=== PATIENT | male | born 1955 | race Caucasian/White ===

== ENCOUNTER → 2017-03-05 | Day surgery (SDC) | payer OTHER ==
[2017-03-03 10:20] LABS: HCT 42.4 % (42.0-52.0); HGB 14.8 g/dl (13.2-18.0); MCH 29.7 pg (25.0-31.0); MCHC 34.9 g/dL (32.0-36.0); MCV 85.1 fL (78.0-100.0); MPV 10.3 fL (6.0-9.5); RBC 4.98 M/uL (4.70-6.00); RDW 12.4 % (11.5-14.0); WBC 4.9 K/uL (4.0-10.5)
[2017-03-03 10:28] LABS: ALBUMIN 4.3 g/dL (3.4-4.8); BILIRUBIN - TOTAL 0.4 mg/dL (0.1-1.0); CREATININE 0.8 mg/dL (0.7-1.2); GLOBULIN (CALCULATION) 2.5 g/dL (2.2-4.2); POTASSIUM 4.6 mmol/L (3.5-5.1); TOTAL PROTEIN 6.8 g/dL (6.4-8.3)
== END | disposition home or self-care (01) ==
LOC: FAS 08:00
PROVIDERS: Orthopaedic Surgery
DX: M23.222 Derangement of posterior horn of medial meniscus due to old tear or injury, left knee (principal); M17.12 Unilateral primary osteoarthritis, left knee; M23.262 Derangement of other lateral meniscus due to old tear or injury, left knee; M79.4 Hypertrophy of (infrapatellar) fat pad; M25.862 Other specified joint disorders, left knee; Z88.2 Allergy status to sulfonamides
CPT/HCPCS: 36415; 71020; 80053; 93005; J2704; J3010; J7325